=== PATIENT | male | born 1970 | race Asian ===

== ENCOUNTER → 2019-10-04 | Outpatient (CLI) | payer BC ==
[2019-10-04 17:18] LABS: ALBUMIN 4.8 g/dL (3.5-5.0); ALKALINE PHOSPHATASE 53 U/L (38-126); ASPARTATE AMINO TRANSFERASE 24 U/L (17-59); BILIRUBIN,TOTAL 0.6 mg/dL (0.2-1.3); CHOLESTEROL 173.12 mg/dL (0-200); TOTAL PROTEIN 7.6 g/dL (6.3-8.2); TRIGLYCERIDES 70 mg/dL (<150)
[2019-10-04 17:29] LABS: DIRECT LDL 120 mg/dL (<100)
== END ==
LOC: OD 16:06
PROVIDERS: ATTEND Nurse Practitioner Family
DX: E78.5 Hyperlipidemia, unspecified (principal); Z79.899 Other long term (current) drug therapy
CPT/HCPCS: 36415; 80061; 80076